=== PATIENT | male | born 1985 | race Caucasian/White ===

== ENCOUNTER → 2017-01-23 | Day surgery (SDC) | payer OTHER ==
[~2017-01-23] VITALS: Ht 180.3 cm; Wt 83.9 kg
[~2017-01-23] MED LIST: ACETAMINOPHEN 1000 MG/100 ML VIAL IV ONE; ACETAMINOPHEN/HYDROcodone 325 MG/10 MG TAB ONE; BUPIVACAINE HCL PF 0.5% 30 ML VIAL ONE; DEXT 5%-NACL 0.45% 1000 ML INJ 1,000 ML IV SCH; FAMOTIDINE 20 MG/2 ML VIAL ONE; HYDROmorphone HCL PF 1 MG/ML VIAL ONE; IBUP800T23 PO; LACTATED RINGER'S 1000 ML INJ 1,000 ML IV ONE; LACTATED RINGER'S 1000 ML INJ 1,000 ML ONE; MIDAZOLAM HCL 2 MG/2 ML VIAL ONE; NORC5TAB PO; ONDANSETRON HCL 4 MG/2 ML VIAL IV PUSH ONE; POVIDONE IODINE 10% OINT 1 PACKET TOPICAL ONE; PROPOFOL 200 MG/20 ML AMP IV ONE; SODIUM CHLORIDE 0.9% FLUSH 5 ML FLUSH IVF PRN; SODIUM CHLORIDE 0.9% FLUSH 5 ML FLUSH IVF SCH; ceFAZolin 2 GM PREMIX 50 ML ONE; fentaNYL CITRATE 250 MCG/5 ML AMP ONE
[2017-01-23 07:58] VITALS: BP 152/87; PULSE 69; RESP 18; TEMP 98.2; O2SAT 98
[2017-01-23 08:18] LABS: HEMATOCRIT 47.1 % (39.0-51.0); MEAN CELL VOLUME 88.7 FL (80.0-100.0); MEAN CORPUSCULAR HEMOGLOBIN 29.7 PG (27.0-34.0); MEAN CORPUSCULAR HGB CONC 33.5 % (32.0-36.0); PLATELET COUNT 289 TH/MM3 (150-450); RED BLOOD COUNT 5.31 MIL/MM3 (4.50-5.90); RED CELL DISTRIBUTION WIDTH 12.1 % (11.6-17.2); REVIEW FLAG FINAL; WHITE BLOOD COUNT 9.8 TH/MM3 (4.0-11.0)
--- NOTE | 2017-01-23 08:24 | HP.UPD ---
H&P Update Date: Jan 23, 2017 Note The Pre-Admit History and Physical Examination regarding the above named patient was reviewed (including, but not limited to, vital signs, medications, allergies, co-morbid conditions), and upon re-examination it is noted that: Indicated with "X" x - the patient's condition has not significantly changed since the last examination. [] - the patient's condition has changed since the last examination. Changes: Carlita Schroeder MD Jan 23, 2017 08:23
[2017-01-23 11:30] VITALS: PULSE 69
--- NOTE | 2017-01-23 11:44 | HHI.PR ---
Immediate Post Op Note Procedure Date: Jan 23, 2017 Pre Op Diagnosis: (1) Fracture of hand with delayed healing Post Op Diagnosis: (1) Fracture of hand with delayed healing Surgeon: Carlita Schroeder Paper Testing Supervisor(s): None Procedure: 1. Removal of hardware. 2. Repair of nonunion of left fifth metacarpal with bone autograft and internal fixation. Anesthesia: General Drains: None Tourniquet time (min at mmHg) 127 minutes at 220 mmHg Patient to: PACU Patient Condition: Good Implant/Devices: SEE IMPLANT LOG (if applicable) Date/Time of Procedure: SEE SURGICAL CARE RECORD Carlita Schroeder MD Jan 23, 2017 11:44
[2017-01-23 12:15] VITALS: PULSE 65; TEMP 98
[2017-01-23 12:50] VITALS: BP 146/83; PULSE 76; RESP 14; O2SAT 98
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
== END | disposition home or self-care (01) ==
LOC: PHSDC 07:28
PROVIDERS: ATTEND Specialist
DX: S62.92XG Unspecified fracture of left hand, subsequent encounter for fracture with delayed healing (principal); T84.41 Breakdown (mechanical) of other internal orthopedic devices, implants and grafts; J45.909 Unspecified asthma, uncomplicated; Z01.818 Encounter for other preprocedural examination
CPT/HCPCS: 01830; 26546; 36415; 76000; 85027; C1713; J0131; J0690; J1170; J2250; J2405; J3010; J7120